=== PATIENT | female | born 1970 | race Caucasian/White ===

== ENCOUNTER 2018-11-21 00:51 | Emergency (ER) | payer BC, OTHER ==
--- NOTE | 2018-11-21 00:55 | PDOC ---
History of Present Illness - General Chief Complaint: Palpitations Stated Complaint: HEARTBEAT OVER 90 - History of Present Illness Initial Comments: This 48-year-old woman with a history of thrombocytosis but no other significant medical processes presents with episode of rapid and strong heartbeat when awakening from a nap just prior to presentation. Patient states that her "fit bit"watch showed maximum heart rate of 103/minute. Patient states that her resting heart rate is usually "20-30" beats per minute lower. She denies pain/shortness of breath/fever/vomiting or diarrhea. She had upper respiratory infection last week after returning from [place] but has now recovered from this. She denies lower extremity pain or swelling. No history of thyroid issues. Patient's thrombocytosis was diagnosed approximately 10 years ago and platelet counts have been stable at approximately 1.3M. White blood cell count is usually elevated also when she has her routine follow-up lab evaluations. She takes ASA 81 mg daily and is followed by Dr. Blank. Patient was taken off of her long-term oral contraceptives 3 months ago and has not had menstrual cycle since then. Past History - Past Medical History Allergies/Adverse Reactions: Allergies Allergy/AdvReac Type Severity Reaction Status Date / Time No Known Drug Allergies Allergy Verified 12/20/15 12:40 seasonal Allergy Uncoded 12/20/15 12:40 Home Medications: Ambulatory Orders Ascorbic Acid [Vitamin C -] 500 mg PO DAILY 12/20/15 Aspirin [Aspirin EC] 81 mg PO DAILY 12/20/15 Calcium Carbonate [Calcium] 500 mg PO DAILY 12/20/15 Cholecalciferol (Vitamin D3) [Vitamin D] 1,000 unit PO DAILY 12/20/15 Fluticasone Prop 0.05% Nasal [Flonase -] 1 - 2 spray NS DAILY 12/20/15 Norgestimate-Ethinyl Estradiol [Ortho Tri-Cyclen] 1 each PO DAILY 12/20/15 Anemia: No (hx of thrombocytosis) Asthma: No Cancer: No Cardiac Disorders: No CVA: No COPD: No CHF: No Dementia: No Diabetes: No GI Disorders: No Disorders: No HTN: No Hypercholesterolemia: No Liver Disease: No Seizures: No Thyroid Disease: No - Suicide/Smoking/Psychosocial Hx Smoking History: Never smoked Have you smoked in the past 12 months: No Hx Alcohol Use: No Drug/Substance Use Hx: No Substance Use Type: None Hx Substance Use Treatment: No Cardiac Specific PMH - Complaint Specific PMHX Pacemaker: No Review of Systems - Review of Systems Able to Perform ROS?: Yes Comments:: 12 point review of systems is negative except for what is noted in the history of present illness *Physical Exam - Vital Signs Last Vital Signs Temp Pulse Resp BP Pulse Ox 97.7 F 86 16 148/96 96 11/21/18 00:52 11/21/18 00:52 11/21/18 00:52 11/21/18 00:52 11/21/18 00:52 - Physical Exam Comments: GENERAL: Adult female, alert and oriented 3, in no acute distress; heart rate 86/minute T97.7 HEAD: Normal with no signs of trauma. EYES: PERRLA, EOMI, sclera anicteric, conjunctiva clear. ENT: Ears normal, nares patent, oropharynx clear without exudates. Dry mucous membranes. NECK: Normal range of motion, supple without lymphadenopathy, JVD, or masses. LUNGS: Breath sounds equal, clear to auscultation bilaterally. No wheezes, and no crackles. HEART:Regular rate and rhythm, normal S1 and S2 without murmur, rub or gallop. ABDOMEN:.normal bowel sounds No guarding,tenderness or rebound.No masses No distention. EXTREMITIES: Normal range of motion, no edema. No clubbing or cyanosis. No erythema, or tenderness. NEUROLOGICAL: Cranial nerves II through XII grossly intact. Normal speech. No focal neurological deficits. MUSCULOSKELETAL: Back non-tender to palpation, no CVA tenderness SKIN: Warm, Dry, normal turgor, no rashes or lesions noted. 12-lead electrocardiogram shows normal sinus rhythm at 77 beats per minute. [place], intervals and wave forms are all normal. No evidence of acute ST or T- wave abnormalities. No evidence of cardiac arrhythmia Moderate Sedation - Procedure Monitoring Vital Signs: Procedure Monitoring Vital Signs Temperature 97.7 F 11/21/18 00:52 Pulse Rate 86 11/21/18 00:52 Respiratory Rate 16 11/21/18 00:52 Blood Pressure 148/96 11/21/18 00:52 O2 Sat by Pulse Oximetry (%) 96 11/21/18 00:52 ED Treatment Course - LABORATORY CBC & Chemistry Diagram: 11/21/18 01:50 11/21/18 01:50 - ADDITIONAL ORDERS Additional order review: Laboratory Results 11/21/18 11/21/18 01:50 01:50 Sodium 141 Potassium 5.0 Chloride 108 H Carbon Dioxide 29 Anion Gap 5 L BUN 19 H Creatinine 0.8 Creat Clearance w eGFR > 60 Random Glucose 88 Calcium 8.4 L Total Bilirubin 0.4 AST 16 ALT 31 Alkaline Phosphatase 95 Total Protein 6.4 Albumin 3.8 TSH 2.74 Urine Color Ltyellow Urine Appearance Clear Urine pH 7.0 Ur Specific Shelley 1.012 Urine Protein Negative Urine Glucose (UA) Negative Urine Ketones Negative Urine Blood Negative Urine Nitrite Negative Urine Bilirubin Negative Urine Urobilinogen Negative Ur Leukocyte Esterase Negative Urine HCG, Qual Negative 11/21/18 01:50 RBC 4.62 MCV 94.9 MCHC 34.5 RDW 15.0 MPV 6.7 L Neutrophils % 82.4 Lymphocytes % 11.6 Monocytes % 2.4 L Eosinophils % 3.1 Basophils % 0.5 Medical Decision Making - Medical Decision Making CBC/chemistry profile/TSH/UA/PGU sent. Patient's episode of palpitations may be related to anemia/dehydration/occult infection/, among other abnormalities. Patient continued to be comfortable without any further episodes of fast or more forceful heartbeats. Laboratory evaluation reveals elevation of her platelet count (1.3 million) and WBCs (19.9 thousand) as expected from previous evaluations. Remainder of the CBC was essentially normal. Chemistry notable for elevation of BUN in relation to creatinine (19/0.8), somewhat suggestive of prerenal azotemia. Calcium level was slightly lower than normal at 8.4. Otherwise, chemistry profile is essentially normal. TSH is normal at 2.74. Urinalysis dipstick is entirely negative and PGU is also negative. Etiology of patient's episode of mild palpitations is unclear but no significant abnormalities found on her laboratory evaluation. Likewise, the patient's EKG revealed no significant conduction abnormality or evidence of acute ischemia/infarct. The patient will continue to drink plenty of fluids and return if she has prolonged rapid or irregular pulse. She should follow-up with her PMD (Dr. Fajardo) as well as Dr. Blank and her front services agent *DC/Admit/Observation/Transfer Diagnosis at time of Disposition: Palpitations - Discharge Dispostion Disposition: HOME Condition at time of disposition: Stable - Referrals Referrals: Anabela Fajardo MD [Primary Care Provider] - 1 week - Patient Instructions Printed Discharge Instructions: DI for Palpitations Additional Instructions: Continue to drink plenty of fluids Return to ER if you have prolonged palpitations or develop chest pain/shortness of breath Follow-up with Dr. Fajardo within the next week Follow-up with front services agent and with Dr. Blank as scheduled - Post Discharge Activity
[2018-11-21 00:57] VITALS: BP 148/96; PULSE 86; TEMP 97.7; BMI 26.6
[2018-11-21 02:24] LABS: URINE APPEARANCE CLEAR; URINE BILIRUBIN NEGATIVE (<2.0 mg/dL); URINE COLOR LTYELLOW; URINE GLUCOSE (UA) NEGATIVE (NEGATIVE); URINE KETONE NEGATIVE (NEGATIVE); URINE LEUK ESTERASE NEGATIVE (NEGATIVE); URINE NITRITE NEGATIVE (NEGATIVE); URINE PROTEIN NEGATIVE (NEGATIVE); URINE UROBILINOGEN NEGATIVE mg/dL (0.2-1.0)
[2018-11-21 02:27] LABS: BASO % 0.5 % (0-2.0); EOS % 3.1 % (0-4.5); HEMATOCRIT 43.8 % (32.4-45.2); HEMOGLOBIN 15.1 GM/dL (10.7-15.3); LYMPH % 11.6 % (8-40); MCH 32.8 pg (25.7-33.7); MCHC 34.5 g/dl (32.0-36.0); MEAN CELL VOLUME 94.9 fl (80-96); MEAN PLT VOLUME 6.7 fl (7.5-11.1); MONO % 2.4 % (3.8-10.2); NEUT % 82.4 % (42.8-82.8); RBC 4.62 M/mm3 (3.60-5.2); WHITE BLOOD COUNT 19.9 K/mm3 (4.0-10.0)
[2018-11-21 02:29] LABS: HCG,QUALITATIVE URINE Negative
[2018-11-21 02:37] LABS: PLATELET COUNT 1305 K/MM3 (134-434)
[2018-11-21 03:00] LABS: ALBUMIN 3.8 g/dl (3.4-5.0); ALK PHOS 95 U/L (45-117); ANION GAP 5 MMOL/L (8-16); BILIRUBIN,TOTAL 0.4 mg/dL (0.2-1); BLOOD UREA NITROGEN 19 mg/dL (7-18); CALCIUM 8.4 mg/dL (8.5-10.1); CHLORIDE 108 mmol/L (98-107); CO2 29 mmol/L (21-32); CREATININE 0.8 mg/dL (0.55-1.3); GLUCOSE,RANDOM 88 mg/dL (74-106); SGOT/AST 16 U/L (15-37); SGPT/ALT 31 U/L (13-61); SODIUM 141 mmol/L (136-145); TOT PROT 6.4 g/dl (6.4-8.2)
--- NOTE | 2018-11-22 11:07 | EKG ---
Test Reason : Blood Pressure : / mmHG Vent. Rate : 077 BPM Atrial Rate : 077 BPM P-R Int : 184 ms QRS Dur : 096 ms QT Int : 398 ms P-R-T Axes : 055 006 051 degrees QTc Int : 450 ms NORMAL SINUS RHYTHM POSSIBLE INFERIOR INFARCT , AGE UNDETERMINED CANNOT RULE OUT ANTERIOR INFARCT , AGE UNDETERMINED ABNORMAL ECG NO PREVIOUS ECGS AVAILABLE Confirmed by SHOAIB CABAN MD ([id number]) on 11/22/2018 11:06:55 AM Referred By: DR SALINAS Confirmed By:SHOAIB CABAN MD
== END 2018-11-21 03:21 | disposition home or self-care (01) ==
LOC: FER 00:51
DX: R00.2 Palpitations (principal); D47.3 Essential (hemorrhagic) thrombocythemia
CPT/HCPCS: 36415; 80053; 81003; 84443; 84703; 85025; 93005; 99283-25

== ENCOUNTER 2019-06-14 13:00 | Emergency (ER) | payer BC, OTHER ==
[2019-06-14 13:05] VITALS: BMI 26.6
[2019-06-14] MEDS ORDERED: OXYMETAZOLINE 0.05% NASAL SOLUTION 15 ML BOTTLE NS ONE ×2 (13:10→13:15)
[2019-06-14 13:20] VITALS: BP 136/95; PULSE 74; TEMP 98
--- NOTE | 2019-06-14 13:55 | PDOC ---
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 No history of similar has tried direct pressure with limited success tolerating secretions no difficulty breathing no pain no severe distress Past History - Past Medical History Allergies/Adverse Reactions: Allergies Allergy/AdvReac Type Severity Reaction Status Date / Time No Known Drug Allergies Allergy Verified 06/14/19 13:01 seasonal Allergy Uncoded 06/14/19 13:01 Home Medications: Ambulatory Orders Aspirin [Aspirin EC] 81 mg PO DAILY 12/20/15 Fluticasone Prop 0.05% Nasal [Flonase -] 1 - 2 spray NS DAILY 06/14/19 Anemia: No (hx of thrombocytosis) Asthma: No Cancer: No Cardiac Disorders: No CVA: No COPD: No CHF: No Dementia: No Diabetes: No GI Disorders: No Disorders: No HTN: No Hypercholesterolemia: No Liver Disease: No Seizures: No Thyroid Disease: No - Suicide/Smoking/Psychosocial Hx Smoking History: Never smoked Have you smoked in the past 12 months: No Hx Alcohol Use: Yes (OCASIONAL) Drug/Substance Use Hx: No Substance Use Type: None Hx Substance Use Treatment: No Review of Systems - Review of Systems Comments:: 06/14/19 13:50 ROS: A complete review of 10 out of 10 review of systems is taken and is negative apart from what is previously mentioned below and in the HPI. Is the patient limited Swazi proficient: Yes *Physical Exam - Vital Signs Last Vital Signs Temp Pulse Resp BP Pulse Ox 98.0 F 74 16 136/95 98 06/14/19 13:00 06/14/19 13:00 06/14/19 13:00 06/14/19 13:00 06/14/19 13:00 - Physical Exam Comments: 06/14/19 13:51 Vitals: Triage Vital signs reviewed General Appearance: no acute distress, well nourished well developed, Head: Atraumatic, Nose: Nares patent bilaterally;no nasal congestion bleeding from Middle / posterior lateral Oakes right nostril; no septal hematoma Throat: Posterior oropharynx without erythema, mucous membranes moist, Neck: Supple;No Nucal rigidity Psych: normal mood, normal affect ED Treatment Course - Medications Given in the ED: ED Medications Discontinued Medications Generic Name Dose Route Start Last Admin Trade Name Jim PRN Reason Stop Dose Admin Oxymetazoline HCl 1 spray 06/14/19 13:10 06/14/19 13:18 Afrin - NS 06/14/19 13:11 1 spray ONCE ONE Administration Medical Decision Making - Medical Decision Making 06/14/19 13:52 48 years old with nosebleed. Direct pressure applied for 15 minutes after Afrin nasal spray with no success. Not amenable to cauterization at this time Nasal packing applied with good hemostasis no posterior bleed We'll discharge with 24-hour ENT follow-up no indication for antibiotics at this time. Findings, the need for follow-up and strict return instructions discussed with patient. *DC/Admit/Observation/Transfer Diagnosis at time of Disposition: Epistaxis - Discharge Dispostion Disposition: HOME Condition at time of disposition: Fair Decision to Admit order: No - Referrals Referrals: Anabela Fajardo MD [Primary Care Provider] - Lauri Marie MD [Staff Physician] - - Patient Instructions Printed Discharge Instructions: Nosebleed Additional Instructions: Leave packing in place. I'll up with your ENT or Dr. Tierney tomorrow. Return to ED for any severe worsening symptoms or for any concerns. - Post Discharge Activity
== END 2019-06-14 14:33 | disposition home or self-care (01) ==
LOC: FER 13:00
PROC: 2Y41X5Z Packing of Nasal Region using Packing Material (ICD-10-PCS; principal; 2019-06-14)
DX: R04.0 Epistaxis (principal); D47.3 Essential (hemorrhagic) thrombocythemia
CPT/HCPCS: 99281-25

== ENCOUNTER 2019-07-02 12:42 | Inpatient (IN) | payer BC, OTHER ==
[2019-07-02] MEDS ORDERED: SODIUM CHLORIDE 0.9% 500 ML INFUS.BAG IV ONE (13:41)
--- NOTE | 2019-07-02 13:42 | PDOC ---
History of Present Illness - General Chief Complaint: Diarrhea Stated Complaint: ABD. PAIN Time Seen by Provider: 07/02/19 13:25 Past History - Past Medical History Allergies/Adverse Reactions: Allergies Allergy/AdvReac Type Severity Reaction Status Date / Time No Known Drug Allergies Allergy Verified 07/02/19 03:23 seasonal Allergy Uncoded 07/02/19 03:23 Home Medications: Ambulatory Orders Ascorbate Calcium [Vitamin C] 500 mg PO DAILY 07/02/19 Aspirin 81 mg PO DAILY 07/02/19 Calcium Carbonate [Calcium] 500 mg PO DAILY 07/02/19 Ciprofloxacin [Cipro -] 500 mg PO Q12H #10 tablet 07/02/19 Fluticasone Prop 0.05% Nasal [Flonase -] 1 - 2 spray NS DAILY 07/02/19 Loratadine [Claritin] 10 mg PO DAILY 07/02/19 metroNIDAZOLE [Flagyl -] 500 mg PO TID #15 tablet 07/02/19 Anemia: No (hx of thrombocytosis) Asthma: No Cancer: No Cardiac Disorders: No CVA: No COPD: No CHF: No Dementia: No Diabetes: No GI Disorders: No Disorders: No HTN: No Hypercholesterolemia: No Liver Disease: No Seizures: No Thyroid Disease: No - Immunization History Immunization Up to Date: No - Psycho Social/Smoking Cessation Hx Smoking History: Never smoked Have you smoked in the past 12 months: No Information on smoking cessation initiated: No Hx Alcohol Use: No Drug/Substance Use Hx: No Substance Use Type: None Hx Substance Use Treatment: No *Physical Exam - Vital Signs Last Vital Signs Temp Pulse Resp BP Pulse Ox 98.6 F 83 18 134/88 99 07/02/19 13:03 07/02/19 13:03 07/02/19 13:03 07/02/19 13:03 07/02/19 13:03 ED Treatment Course - LABORATORY CBC & Chemistry Diagram: 07/02/19 14:07 Medical Decision Making - Medical Decision Making 07/02/19 13:42 HPI: 48yo F hx essential thrombocytosis on aspirin, seasonal allergies, hemorrhoids, and anal fissures presents from home c/o persistent BRBPR since d/c from here this AM for same complaint. Pt states her abdominal pain has improved, but her rectal bleeding has continued and her d/c instructions say to return for persistent bleeding. Endorses PO intolerance, nausea, 1x NBNB emesis at 1999 last PM, and generalized weakness/fatigue. Endorses continued intermittent b/l abdominal cramping pain since yesterday 1600 sudden onset, nonradiating, worse with defecation, associated with bright red bloody watery diarrhea. Pt states she has not eaten since d/c so she no longer has BMs or diarrhea but still has drops of bright red blood in toilet bowl and on toilet paper, only a few teaspoons total today. No hx of similar sx. Endorses Fhx colon CA in father and paternal grandfather so concerned about CA. Called GI but was unable to get CLP until Thursday and would prefer earlier if possible. Denies fever, chills, headache, dizziness, numbness/tingling, focal weakness, vision changes, shortness of breath, cough, chest pain, palpitations, leg swelling, constipation , vaginal discharge, vaginal bleeding, vaginal irritation, anus pain, dysuria, hematuria, confusion. GI - Argueta CLP done at 40yo and 45yo, next CLP scheduled next year. ROS: Constitutional: Positive for fatigue. Negative for chills, fever, diaphoresis. HENT: Negative for sore throat, rhinorrhea, congestion. Eyes: Negative for visual disturbance. Respiratory: Negative for shortness of breath, cough, and wheezing. Cardiovascular: Negative for chest pain, palpitations, and leg swelling. Gastrointestinal: Positive for abdominal pain, blood in stool, diarrhea, nausea , vomiting, PO intolerance. Negative for constipation. Genitourinary: Negative for dysuria, flank pain, and hematuria. Musculoskeletal: Negative for myalgias, back pain, and neck pain. Skin: Negative for rash. Neurological: Negative for light-headedness, dizziness, vertigo, syncope, weakness, numbness and headaches. Heme/lymph: Positive for essential thrombocytosis. Psychiatric/Behavioral: Negative for behavioral problems and confusion. PE: Gen: Alert, NAD, comfortable-appearing. HEENT: PERRL, EOMI, MMM, NCAT. No conjunctival pallor. Sclera are non-icteric. Oropharynx is clear. CV: Regular rate and rhythm. No murmurs, rubs, or gallops. PULM: No resp distress. CTAB, no wheezes, rales, or rhonchi. ABD: +mild b/l suprapubic TTP, soft, ND, no rebound tenderness or guarding, no CVA tenderness. BACK: No TTP of c/t/l-spine. No step-offs or deformities. MSK: No bony deformities. 2+ pulses in all extremities. NEURO: AAOx3. PERRL. No gross CN deficits. Strength and sensation grossly intact throughout. EXTREMITIES: No cyanosis. No clubbing. No edema. No calf tenderness. PSYCH: Normal mood and thought pattern. SKIN: Warm and dry. Normal capillary refill. No rashes. No jaundice. MDM: 48yo F hx essential thrombocytosis, seasonal allergies, hemorrhoids, and anal fissures presents from home with persistent BRBPR and lower abdominal cramping pain since d/c from here this AM for same complaint with dx colitis, as well as worsening fatigue, PO intolerance, and nausea. Pt was discharged this AM with GI f/u and rx for cipro/flagyl. Pt has not picked up abx yet or taken first dose yet. Labs reviewed from this AM: CBC, coags, CMP, lipase, UA. CBC consistent with known essential thrombocytosis, WBC 26.6, Plt 1153 (pt reports baseline, on aspirin). Stool culture and ova parasite done this AM. No FOBT done. CT reviewed: e/o colitis and sigmoid diverticulosis Hemodynamically stable, afebrile, +mild b/l suprapubic TTP on exam. Only a few teaspoons of blood, but will obtain CBC to r/o anemia 2/2 hemorrhage. FOBT to evaluate for blood. Abx to tx known colitis. Presentation consistent with earlier presentation today, non-acute abdomen - labs and CT done , no indication for additional imaging or repeat labs other than CBC. -CBC,T&S,FOBT -1L NS -Cipro, Flagyl -Dispo: adm for weakness and inability to take abx pending w/u 07/02/19 14:51 FOBT done. Minimal lopez blood seen on digital exam. Skin tags seen but no anal fissures or hemorrhoids seen or felt. Pt states no stool sample was obtained yesterday - will re-order stool culture and ova parasite. Also discovered recent use Keflex - added C diff. 07/02/19 14:57 Labs reviewed. No significant changes on CBC. FOBT positive. MBMD to hospitalist. 07/02/19 16:31 EKG reviewed. NSR, 76bpm, QTc 470ms, no TWIs, no ST elevations or depressions. No prior EKG for comparison. Admission accepted under Dr Beltrán. Discharge - Discharge Information Problems reviewed: Yes Clinical Impression/Diagnosis: Colitis Condition: Stable - Admission Yes - Follow up/Referral Referrals: Anabela Fajardo MD [Primary Care Provider] - - Patient Discharge Instructions - Post Discharge Activity
[2019-07-02] MEDS ORDERED: CIPROFLOXACIN 400 MG/D5W 400 MG/200 ML IVPB IVPB ONE (13:59)
[2019-07-02] MEDS ORDERED: ONDANSETRON 4 MG/2 ML VIAL IVPUSH ONE (14:02)
[2019-07-02 14:34] LABS: BASO % 0.4 % (0-2.0); EOS % 1.8 % (0-4.5); HEMATOCRIT 48.7 % (32.4-45.2); HEMOGLOBIN 16.4 GM/dL (10.7-15.3); LYMPH % 5.6 % (8-40); MCH 30.5 pg (25.7-33.7); MCHC 33.6 g/dl (32.0-36.0); MEAN PLT VOLUME 6.6 fl (7.5-11.1); MONO % 1.6 % (3.8-10.2); NEUT % 90.6 % (42.8-82.8); RBC 5.36 M/mm3 (3.60-5.2); RDW 15.3 % (11.6-15.6); WHITE BLOOD COUNT 24.3 K/mm3 (4.0-10.0)
[2019-07-02 14:35] LABS: PLATELET COUNT 1112 K/MM3 (134-434)
--- NOTE | 2019-07-02 15:25 | PDOC ---
Documentation entered by Misty Laguerre SCRIBE, acting as scribe for Kyara Jacinto MD. Kyara Jacinto MD: This documentation has been prepared by the Carlotta villagomez Adrianna, SCRIBE, under my direction and personally reviewed by me in its entirety. I confirm that the documentation accurately reflects all work, treatment, procedures, and medical decision making performed by me. Attending Attestation - Resident Resident Name: Irasema Moss - ED Attending Attestation I have performed the following: I have examined & evaluated the patient, The case was reviewed & discussed with the resident, I agree w/resident's findings & plan, Exceptions are as noted - HPI HPI: The patient is a 48 year old female, with a significant PMH of essential thrombocytosis, who presents for evaluation of diarrhea, BRBPR, and lower abdominal cramping for one day. Patient was seen earlier this morning, and her CTAP demonstrated colitis. Patient returns as the bleeding has not stopped since her discharge and she wants to be admitted. Allergies: NKA, NKDA Surgical History: None reported Social History: Denies EtOH, tobacco, or illicit drug use 07/02/19 15:14 - Physicial Exam PE: 07/02/19 15:22 Is really tell when they are coming awake alert no acute distress lungs are clear bilaterally heart is regular with no murmurs rubs or gallops abdomen is soft there is mild left lower quadrant tenderness no rebound no guarding no CVA tenderness extremities are warm and well-perfused no noted edema - Medical Decision Making 07/02/19 15:23 48-year-old female with a history of essential thrombocytosis recently on Keflex after a nosebleed which was packed 1 week ago here today complaining of persistent loose watery stools crampy abdominal pain. Patient was seen on the overnight shift at that time was having several bowel movements in our was evaluated with CBC CMP and a CT abdomen pelvis which showed diffuse colitis. She was discharged home with a prescription for Cipro and Flagyl. While at home however the patient started having blood without stool from her rectum still having crampy pain overall stools have become much less she did have one episode of nausea and vomiting which is since resolved however when she tried to eat crackers she had to go the bathroom again denies any fevers or chills no recent travel no history of previous GI bleeds no family history of ulcerative colitis or Crohn's Differential includes colitis secondary to C. difficile versus inflammatory or infectious. Patient is been able to tolerate very little p.o. at home we will continue IV hydration IV antibiotics Norris Shaver will call her fiction writer Dr. Argueta Heart Score/ECG Review #1 General ECG Interpretation: Sinus Rhythm, Normal Rate (76), Normal Intervals, No acute ischemic changes
--- NOTE | 2019-07-02 16:11 | PN ---
Teaching Attending Note Name of Resident: Dary Salazar ATTENDING PHYSICIAN STATEMENT I saw and evaluated the patient. I reviewed the resident's note and discussed the case with the resident. I agree with the resident's findings and plan as documented with exceptions below. SUBJECTIVE: 48 yof with PMHx of Myeloproliferative disorder, essential thrombocytosis ( Baseline WBC 15-20, Platelets around 1 million) on ASA, strong family Hx of colon ca, last colonoscopy 3.5 years ago (with Dr. Argueta), comes with sudden onset of lower abdominal crampy pain, nausea, multilpe episodes of watery stool mixed with BRBPR. She was seen in the ED last night, sent home on cipro/flagyl, came back as had few more episodes of BRBPR (drops of blood mixed with few clots in the toilet), came back to ED. Subjective fevers/chills earlier. s/p keflex for nasal packing/bleed few weeks ago. No recent travel, URI like illness. Her mother was recently sick with UTI, hospitalized, and she was in hospital daily last week. No reports of diveritulosis/polyp/haemorrhoids on prior colonoscopy per patient. OBJECTIVE: Vital Signs Period Temp Pulse Resp BP Sys/Carty Pulse Ox Last 24 Hr 98.6 F 83 18 134/88 99 Intake & Output 06/29/19 06/30/19 07/01/19 07/02/19 23:59 23:59 23:59 23:59 Weight 172 lb GENERAL: Awake, alert, and fully oriented, in no acute distress. HEAD: Normal with no signs of trauma. EYES: Pupils equal, round and reactive to light, extraocular movements intact, sclera anicteric, conjunctiva clear. No lid lag. EARS, NOSE, THROAT: Ears normal, nares patent, oropharynx clear without exudates. Moist mucous membranes. NECK: Normal range of motion, supple, no JVD LUNGS: Breath sounds equal, clear to auscultation bilaterally. No wheezes, and no crackles. No accessory muscle use. HEART: Regular rate and rhythm, normal S1 and S2 ABDOMEN: Soft, mild suprapubic/Medial LLQ tenderness, ND, no voluntary or involuntary guarding or rigidity, pos bowel sounds RECTAL: No fissure or haemorrhoids, no blood on exam currently, good rectal tone MUSCULOSKELETAL: Normal range of motion at all joints. No bony deformities or tenderness. No CVA tenderness. UPPER EXTREMITIES: 2+ pulses, warm, well-perfused. No cyanosis. No clubbing. No peripheral edema. LOWER EXTREMITIES: 2+ pulses, warm, well-perfused. No calf tenderness. No peripheral edema. NEUROLOGICAL: AAOx3, Cranial nerves II-XII intact. Normal speech. Normal gait. PSYCHIATRIC: Cooperative. Good eye contact. Appropriate mood and affect. SKIN: Warm, dry, normal turgor, no rashes or lesions noted, normal capillary refill. Home Medications Medication Instructions Recorded Ascorbate Calcium [Vitamin C] 500 mg PO DAILY 07/02/19 Aspirin 81 mg PO DAILY 07/02/19 Calcium Carbonate [Calcium] 500 mg PO DAILY 07/02/19 Ciprofloxacin [Cipro -] 500 mg PO Q12H #10 tablet 07/02/19 Fluticasone Prop 0.05% Nasal 1 - 2 spray NS DAILY 07/02/19 [Flonase -] Loratadine [Claritin] 10 mg PO DAILY 07/02/19 metroNIDAZOLE [Flagyl -] 500 mg PO TID #15 tablet 07/02/19 Laboratory Results - last 24 hr 07/02/19 07/02/19 07/02/19 14:07 14:07 14:44 WBC 24.3 H RBC 5.36 H Hgb 16.4 H Hct 48.7 H MCV 91.0 MCH 30.5 MCHC 33.6 RDW 15.3 Plt Count 1112 H MPV 6.6 L Absolute Neuts (auto) 22.0 H Neutrophils % 90.6 H Lymphocytes % 5.6 L Monocytes % 1.6 L Eosinophils % 1.8 Basophils % 0.4 Nucleated RBC % 0 Stool Occult Blood Positive Blood Type O POSITIVE Antibody Screen Negative CT A/P results reviewed ASSESSMENT AND PLAN: 48 yof with PMHx of Myeloproliferative disorder, essential thrombocytosis ( Baseline WBC 15-20, Platelets around 1 million) on ASA, strong family Hx of colon ca, last colonoscopy 3.5 years ago (with Dr. Argueta), admitted with acute colitis/proctitis and hematochezia. -Acute descending/sigmoid colitis/Protitis -Hematochezia -Myeloproliferative disorder (baseline WBC 15--20) -Essential thrombocytosis Plan: Clear liquid diet. IVF, Levaquin/flagyl. GI consult Stool studies including C defficile. Supportive treatment with zofran/tylenol. Monitor h/h. ASA on hold today, resume in 24 hours based on clinical course. DVTPPX SCDs for now Dispo pending clinical improvement. Admit to med surg inpatient Discussed with patient in detail, all questions answered. Care co-ordinated with ED. total admit time 55 min.
[2019-07-02] MEDS ORDERED: ACETAMINOPHEN 325 MG TABLET (FP) PO PRN (16:17)
[2019-07-02] MEDS ORDERED: PROCHLORPERAZINE INJECTION 10 MG/2 ML VIAL IVPB PRN (16:47)
--- NOTE | 2019-07-02 16:51 | HP ---
CHIEF COMPLAINT: LGIB PCP: GI: Dr. Argueta HISTORY OF PRESENT ILLNESS: 48 y/o F with PMHx Essential Thrombocytosis (follows with Dr. Blank, Baseline PLT [id number], Baseline WBC 15-20k, No hx of bone bx), Hemorrhoids, Anal fissures, multiple family members with Colon Ca (Last Colonoscopy at age 41 and 45, Normal as per patient) presents with BRBPR. Patient recently visited [facility] this AM for BRBPR with Diarrhea in the setting of cramping abdominal pain; During this visit she had a CT A/P done which revealed Colitis for which she was given IV Analgesia and IVF. Her sx's improved and she was discharged on ABx (Cipro/Flagyl) and advised for outpatient GI Follow up. Since PA, she has had multiple BMs with a few drops of bright red blood in the toilet bowl and on toilet paper with wiping prompting her to return to [facility]. She says she went to bed in her usual state of health however woke with a diffuse, cramping abdominal pain that waxes and wanes, at worts was 6/10. This pain was accompanied by diarrhe that was initially nonbloody and without floaters or odd smells but eventually became bloody. This is the first time she has experienced BRBPR. Denies any NSAID use, recent EtOH use, Sick contacts (no students with diarrhea) , travel, or changes in Diet. Normally patient has 1 BM q36-48 hours. Endorses subjective fevers, nausea, NBNB vomiting x1. Denies chills, chest pain, SOB, headache, dizziness. Additionally she endorses recently visiting [facility] for a nose bleed which requiring packing and a course of Keflex. She also endorses increased stressed from her mothers health; she has been visiting her mother in [facility]. ER course was notable for: (1) (2) (3) Recent Travel: Denies PAST MEDICAL HISTORY: As above PAST SURGICAL HISTORY: 2 colonoscopies Social History: Smoking: Denies Alcohol: Social Drugs: Denies Occupation: 6th grade teacher Ambulation: without assistance Residence: At home with Allergies No Known Drug Allergies Allergy (Verified 07/02/19 03:23) seasonal Allergy (Uncoded 07/02/19 03:23) HOME MEDICATIONS: Home Medications Medication Instructions Recorded Ascorbate Calcium [Vitamin C] 500 mg PO DAILY 07/02/19 Aspirin 81 mg PO DAILY 07/02/19 Calcium Carbonate [Calcium] 500 mg PO DAILY 07/02/19 Ciprofloxacin [Cipro -] 500 mg PO Q12H #10 tablet 07/02/19 Fluticasone Prop 0.05% Nasal 1 - 2 spray NS DAILY 07/02/19 [Flonase -] Loratadine [Claritin] 10 mg PO DAILY 07/02/19 metroNIDAZOLE [Flagyl -] 500 mg PO TID #15 tablet 07/02/19 REVIEW OF SYSTEMS As per HPI PHYSICAL EXAMINATION Vital Signs - 24 hr 07/02/19 13:03 Temperature 98.6 F Pulse Rate 83 Respiratory 18 Rate Blood Pressure 134/88 O2 Sat by Pulse 99 Oximetry (%) GENERAL: A&Ox3, NAD HEAD: NCAT EYES: PERRL, EOMI EARS, NOSE, THROAT: Moist mucous membranes. NECK: Supple LUNGS: Clear to auscultation bilaterally. No wheezes, no crackles. HEART: Regular rate and rhythm, normal S1 and S2 without murmur ABDOMEN: Soft, Mild tenderness to palpation throughout, not distended, + bowel sounds, no guarding, no rebound EXTREMITIES: No peripheral edema. NEUROLOGICAL: Cranial nerves II-XII intact. Normal speech. SKIN: Warm, dry RECTAL: No stool in vault, Good sphincter tone, No external hemmorrhoids visualized, No internal hemorrhoids felt, No active bleeding noted, No blood on tip of glove Laboratory Results - last 24 hr 07/02/19 07/02/19 07/02/19 14:07 14:07 14:44 WBC 24.3 H RBC 5.36 H Hgb 16.4 H Hct 48.7 H MCV 91.0 MCH 30.5 MCHC 33.6 RDW 15.3 Plt Count 1112 H MPV 6.6 L Absolute Neuts (auto) 22.0 H Neutrophils % 90.6 H Lymphocytes % 5.6 L Monocytes % 1.6 L Eosinophils % 1.8 Basophils % 0.4 Nucleated RBC % 0 Stool Occult Blood Positive Blood Type O POSITIVE Antibody Screen Negative Active Medications Acetaminophen (Tylenol -) 650 mg PO Q4H PRN PRN Reason: FEVER Lactated Ringer's (Lactated Ringers Solution) 1,000 mls @ 100 mls/hr IV ASDIR MARCELINO ASSESSMENT/PLAN: 48 y/o F with PMHx Essential Thrombocytosis (follows with Dr. Blank, Baseline PLT [id number], Baseline WBC 15-20k, No hx of bone bx), Hemorrhoids, Anal fissures, multiple family members with Colon Ca (Last Colonoscopy at age 41 and 45, Normal as per patient) presents with BRBPR. #BRBPR -Possibly Diverticular Bleed however Colon Ca is of concern given strong FHx, Still consider through less likely internal hemorrhoids and angiodysplasia -FOBT +, H&H stable, VSS -CT A/P Prelim read for Colitis -Maintain 2 large bore IVs (>18 Gauge) -VS Q4H, Notify MD if HR > 100 or SBP < 100 -Hydration: LR @ 100 -ABx: IV Levofloxacin, Metronidazole -Antiemesis: IV Compazine (QTc 470) -Less likely UGIB, Will hold off PPI -Trial Clear liquid diet however if emesis persists will need to be NPO -Check Stool Studies; ED Sent C. Diff -Supplemental O2 to maintain SpO2 > 90% -Avoid NSAIDs/ASA; Will consider restarting home dose ASA tomorrow -Check H&H again @ 20:00 for acute drop, Normal transfusion thresholds -Serial Abdominal Exams -GI Consulted #Essential Thrombocytosis -Continue to monitor PLT, WBC -Hold ASA; Will consider restarting home dose ASA tomorrow #PRolonged QTc -Avoid QT proloning Agents -Serial EKGs #FEN -LR @ 100 -Replete Lytes PRN -Clear liquid diet #PPx -DVT: SCDs Dispo: Admit to med-surg Visit type - Emergency Visit Emergency Visit: Yes Care time: The patient presented to the Emergency Department on the above date and was hospitalized for further evaluation of their emergent condition. - New Patient This patient is new to me today: Yes Date on this admission: 07/02/19 - Critical Care Critical Care patient: No ATTENDING PHYSICIAN STATEMENT I saw and evaluated the patient. I reviewed the resident's note and discussed the case with the resident. I agree with the resident's findings and plan as documented. SUBJECTIVE: OBJECTIVE: ASSESSMENT AND PLAN:
[2019-07-02] MEDS: LACTATED RINGERS SOLUTION 1,000 ML IV SCH (18:17)
[2019-07-02 20:29] VITALS: BMI 27.0
[2019-07-03 07:59] LABS: BASO % 0.8 % (0-2.0); EOS % 1.5 % (0-4.5); HEMATOCRIT 43.2 % (32.4-45.2); HEMOGLOBIN 14.7 GM/dL (10.7-15.3); LYMPH % 5.7 % (8-40); MCH 30.7 pg (25.7-33.7); MCHC 34.1 g/dl (32.0-36.0); MEAN CELL VOLUME 90.1 fl (80-96); MEAN PLT VOLUME 6.2 fl (7.5-11.1); MONO % 1.8 % (3.8-10.2); NEUT % 90.2 % (42.8-82.8); PLATELET COUNT 905 K/MM3 (134-434); RDW 15.2 % (11.6-15.6); WHITE BLOOD COUNT 17.2 K/mm3 (4.0-10.0)
[2019-07-03 08:06] LABS: ALBUMIN 3.7 g/dl (3.4-5.0); BILIRUBIN,TOTAL 0.9 mg/dL (0.2-1); BLOOD UREA NITROGEN 5.9 mg/dL (7-18); CALCIUM 8.8 mg/dL (8.5-10.1); CREATININE 0.8 mg/dL (0.55-1.3); MAGNESIUM 1.9 mg/dL (1.8-2.4); PHOSPHOROUS 3.2 mg/dL (2.5-4.9); POTASSIUM 4.1 mmol/L (3.5-5.1)
[2019-07-03 08:13] LABS: INR 1.28 (0.83-1.09); PROTHROMBIN TIME (PATIENT) 15.2 SEC (9.7-13.0)
[2019-07-03 08:15] LABS: ACTIVATED PTT 38.2 SECONDS (25.2-36.5)
[2019-07-03 10:54] LABS: ANISOCYTOSIS 2+; MACROCYTOSIS 0; PLATELET ESTIMATE INCREASED; TEAR DROP CELLS 1+
--- NOTE | 2019-07-03 11:23 | CON.GI ---
Consult Consult Specialty:: GI Referred by:: Hospitalist Service Reason for Consultation:: Abdominal pain, diarrhea, rectal bleeding - History of Present Illness Chief Complaint: Abdominal pain, diarrhea, rectal bleeding History of Present Illness: 48F admitted through [facility] yesterday for for evaluation of left sided abdominal cramping, loose bowel movements followed by mixed blood and blood clots with her diarrhea. Was in [facility] up until thursday when her symptoms began. She felt nauseus once and retched when the cramping began to experience more consistent abdominal cramping and this was followed by loose bowel movements. Thursday night she noted blood mixed with her and had a total of three more episodes Thursday. She came to the ER, had a CT scan revealing a left sided colitis and was discharged on Abx. She returned due to continued pain and was admitted for further evaluation. She denied associated fevers/chills, sick contacts with similar complaints. She has been visiting her mother who was admitted at [facility] last week. She was on Keflex for 1 week following an ER visit for epistaxis that led to nasal packing. She has a history of Essential Thrombocytosis and has been on ASA 81mg once daily. There has been no diarrhea or rectal bleeding noted today. She has some left sided discomfort. Due to a family history of colon cancer, she is followed by Dr. Castillo Argueta. Her last colonoscopy with him was 3.5 years ago and she states that is was normal. Her initial colonoscopy was a normal study as well. Her baseline WBC is around 19K. She states that her platelet count has been around 1 million. - History Source History Provided By: Patient, Medical Record - Past Medical History ...LMP: 12/18/15 Heme/Onc: Yes: Other (Essential thrombocytosis) - Past Surgical History Additional Surgical History: Denies - Alcohol/Substance Use Hx Alcohol Use: No - Smoking History Smoking history: Never smoked Have you smoked in the past 12 months: No - Social History Usual Living Arrangement: With Spouse ADL: Independent Occupation: Teacher Place of : [employer] [facility] [employer] History of Recent Travel: No Home Medications - Allergies Allergies/Adverse Reactions: Allergies Allergy/AdvReac Type Severity Reaction Status Date / Time No Known Drug Allergies Allergy Verified 07/02/19 03:23 seasonal Allergy Uncoded 07/02/19 03:23 - Home Medications Home Medications: Ambulatory Orders Aspirin 81 mg PO DAILY 07/02/19 Family Medical History Other Family History: Mother: Alive: Alzheimer's Dementia, renal issue leading to renal transplant. Father: : 60's: Colon cancer. 1 brother: healthy. No children. Maternal Aunt: renal issue leading to x-plant. Maternal GF: Colon cancer. No family history of IBD Review of Systems - Review of Systems Constitutional: denies: Fever, Loss of Appetite, Night Sweats, Unintentional Wgt. Loss Cardiovascular: denies: Chest Pain Respiratory: denies: Cough, SOB Gastrointestinal: reports: Abdominal Pain, Diarrhea, Rectal Bleeding, Vomiting Blood. denies: Vomiting Physical Exam-GI Vital Signs: Vital Signs Temperature 97.7 F 07/03/19 05:15 Pulse Rate 78 07/03/19 09:00 Respiratory Rate 18 07/03/19 09:00 Blood Pressure 144/84 07/03/19 09:00 O2 Sat by Pulse Oximetry (%) 98 07/02/19 21:00 Constitutional: Yes: Calm Eyes: No: Sclera Icterus Cardiovascular: Yes: Regular Rate and Rhythm, Murmur (2/6 systolic murmur at the RSB) Respiratory: Yes: CTA Bilaterally Gastrointestinal Inspection: No: Distention, Scars ...Auscultate: Yes: Normoactive Bowel Sounds ...Palpate: Yes: Soft, Tenderness (Mild TTP LLQ). No: Guarding, Hepatomegaly, Splenomegaly, Tenderness, Rebound ...Percussion: No: Tympanitic Edema: No (No LE edema) Neurological: Yes: Alert Labs: CBC, BMP 07/03/19 07:01 07/03/19 07:01 INR, PTT INR 1.28 (0.83-1.09) H 07/03/19 07:01 Imaging - Results Cat Scan: Report Reviewed, Image Reviewed Problem List - Problems (1) Colitis Assessment/Plan: Left sided colitis with mild symptomatology. ? self limited acute colitis. Given left sided segmental nature of her colitis, passage of blood clots along with her loose bowel movements and her history of essential thrombocytosis, vascular etiology such as ischemic colitis would need to be considered. Improved clinically today. Advise: Advancing to full liquids. NPO after midnight tonight Flex sig tomorrow to better characterize the colitis described on CT scan. If consistent with ischemic colitis (although rectum usually spared) then she may need further discussion with her manufacture specialist regarding escalation of therapy for her essential thrombocytosis. Discussed plan with patient. She is amenable to this. If continued diarrhea, stool for C. Diff,Culture Problems reviewed: Yes Code(s): K52.9 - NONINFECTIVE GASTROENTERITIS AND COLITIS, UNSPECIFIED
--- NOTE | 2019-07-03 13:25 | PN ---
Physical Exam: SUBJECTIVE: Patient seen and examined, abdominal pain markedly improved, no further bleed. No nausea, vomiting or concerns. OBJECTIVE: Vital Signs Period Temp Pulse Resp BP Sys/Carty Pulse Ox Last 24 Hr 97.5 F-97.9 F 72-93 18-18 125-144/70-84 96-98 Intake & Output 06/30/19 07/01/19 07/02/19 07/03/19 23:59 23:59 23:59 23:59 Intake Total 450 320 Balance 450 320 Weight 172 lb 9.6 oz General: ambulating in the room, no acute distress Neck: soft, supple HEENT; PERRL, EOMI CVS:S1S2 regular Chest: CTAB, no rales or wheezing Abdomen:soft, minimal suprapubic medial LLQ tenderness, no voluntary or involuntary guarding or rigidity, pos bowel sounds Extremities: no edema Laboratory Results - last 24 hr 07/02/19 07/02/19 07/02/19 14:07 14:07 14:44 WBC 24.3 H RBC 5.36 H Hgb 16.4 H Hct 48.7 H MCV 91.0 MCH 30.5 MCHC 33.6 RDW 15.3 Plt Count 1112 H MPV 6.6 L Absolute Neuts (auto) 22.0 H Neutrophils % 90.6 H Neutrophils % (Manual) 90.4 H Band Neutrophils % 0.0 Lymphocytes % 5.6 L Lymphocytes % (Manual) 7.2 L D Monocytes % 1.6 L Monocytes % (Manual) 2 L Eosinophils % 1.8 Eosinophils % (Manual) 0.0 Basophils % 0.4 Basophils % (Manual) 0.0 Myelocytes % (Man) 0 Promyelocytes % (Man) 0 Blast Cells % (Manual) 0 Nucleated RBC % 0 Metamyelocytes 0 Hypochromia Platelet Estimate Platelet Comment Polychromasia Poikilocytosis Anisocytosis Microcytosis Macrocytosis Spherocytes Tear Drop Cells PT with INR INR PTT (Actin FS) Sodium Potassium Chloride Carbon Dioxide Anion Gap BUN Creatinine Est GFR (CKD-EPI)AfAm Est GFR (CKD-EPI)NonAf Random Glucose Calcium Phosphorus Magnesium Total Bilirubin AST ALT Alkaline Phosphatase Total Protein Albumin Stool Occult Blood Positive Blood Type O POSITIVE Antibody Screen Negative 07/03/19 07/03/19 07/03/19 07:01 07:01 07:01 WBC 17.2 H RBC 4.80 Hgb 14.7 Hct 43.2 MCV 90.1 MCH 30.7 MCHC 34.1 RDW 15.2 Plt Count 905 H MPV 6.2 L Absolute Neuts (auto) 15.5 H Neutrophils % 90.2 H Neutrophils % (Manual) 87.8 H Band Neutrophils % 1.0 Lymphocytes % 5.7 L Lymphocytes % (Manual) 4.1 L D Monocytes % 1.8 L Monocytes % (Manual) 1 L Eosinophils % 1.5 Eosinophils % (Manual) 4.1 D Basophils % 0.8 Basophils % (Manual) 0.0 Myelocytes % (Man) 0 Promyelocytes % (Man) 0 Blast Cells % (Manual) 0 Nucleated RBC % 0 Metamyelocytes 0 Hypochromia 0 Platelet Estimate Increased Platelet Comment Present Polychromasia 0 Poikilocytosis 1+ Anisocytosis 2+ Microcytosis 1+ Macrocytosis 0 Spherocytes 1+ Tear Drop Cells 1+ PT with INR 15.20 H INR 1.28 H PTT (Actin FS) 38.2 H Sodium 141 Potassium 4.1 Chloride 110 H Carbon Dioxide 26 Anion Gap 6 L BUN 5.9 L Creatinine 0.8 Est GFR (CKD-EPI)AfAm 101.04 Est GFR (CKD-EPI)NonAf 87.18 Random Glucose 86 Calcium 8.8 Phosphorus 3.2 Magnesium 1.9 Total Bilirubin 0.9 AST 15 ALT 19 Alkaline Phosphatase 71 Total Protein 6.0 L Albumin 3.7 Stool Occult Blood Blood Type Antibody Screen Active Medications Generic Name Dose Route Start Last Admin Trade Name Freq PRN Reason Stop Dose Admin Acetaminophen 650 mg 07/02/19 16:17 Tylenol - PO Q4H PRN FEVER Lactated Ringer's 1,000 mls @ 100 mls/hr 07/02/19 16:30 07/02/19 18:17 Lactated Ringers Solution IV 100 mls/hr ASDIR MARCELINO Administration Metronidazole 500 mg in 100 mls @ 100 mls/hr 07/02/19 18:00 07/03/19 09:14 Flagyl 500mg Premixed Ivpb - IVPB 100 mls/hr Q8H-IV MARCELINO Administration Sodium Phosphate 133 ml 07/04/19 08:00 Fleet Adult Rectal Enema - NM 07/04/19 08:01 ONCE ONE ASSESSMENT/PLAN: 48 yof with PMHx of Myeloproliferative disorder, essential thrombocytosis ( Baseline WBC 15-20, Platelets around 1 million) on ASA, strong family Hx of colon ca, last colonoscopy 3.5 years ago (with Dr. Argueta), admitted with acute colitis/proctitis and hematochezia. -Acute descending/sigmoid colitis/Proctitis -Hematochezia -Myeloproliferative disorder (baseline WBC 15--20) -Essential thrombocytosis Plan: Doing well CBC around baseline. GI input noted. For sigmoidoscopy in AM, bowel prep Full liquid diet. NPO after midnight. levaquin/flagyl day 2. Follow up stools studies. Supportive treatment with zofran/tylenol/IVF. No further bleed. Monitor h/h. ASA on hold today, resume in 24 hours based on clinical course. Hematology input based on sigmoidoscopy findings. DVTPPX SCDs for now Dispo in 24-48 hours pending above. Discussed with patient, nursing and GI. Visit type - Emergency Visit Emergency Visit: Yes ED Registration Date: 07/02/19 Care time: The patient presented to the Emergency Department on the above date and was hospitalized for further evaluation of their emergent condition. - New Patient This patient is new to me today: No - Critical Care Critical Care patient: No - Discharge Referral Referred to [facility] No
--- NOTE | 2019-07-03 22:02 | EKG ---
Test Reason : Blood Pressure : / mmHG Vent. Rate : 076 BPM Atrial Rate : 076 BPM P-R Int : 170 ms QRS Dur : 102 ms QT Int : 418 ms P-R-T Axes : 050 -09 040 degrees QTc Int : 470 ms NORMAL SINUS RHYTHM POSSIBLE LEFT ATRIAL ENLARGEMENT INFERIOR INFARCT (CITED ON OR BEFORE 21-NOV-2018) CANNOT RULE OUT ANTERIOR INFARCT (CITED ON OR BEFORE 21-NOV-2018) ABNORMAL ECG WHEN COMPARED WITH ECG OF 21-NOV-2018 01:15, NO SIGNIFICANT CHANGE WAS FOUND Confirmed by Marge Byers ([id number]) on 07/03/2019 10:02:24 PM Referred By: Confirmed By:Marge Byers
[2019-07-04] MEDS: LACTATED RINGERS SOLUTION 1,000 ML IV SCH ×2 (00:01→18:00)
[2019-07-04] MEDS ORDERED: SODIUM PHOSPHATE/NA BIPHOS 133 ML ENEMA PR ONE (08:00)
[2019-07-04 08:27] LABS: BASO % 0.8 % (0-2.0); EOS % 2.4 % (0-4.5); HEMATOCRIT 47.4 % (32.4-45.2); LYMPH % 7.6 % (8-40); MCH 30.4 pg (25.7-33.7); MCHC 33.8 g/dl (32.0-36.0); MEAN CELL VOLUME 89.9 fl (80-96); MEAN PLT VOLUME 6.2 fl (7.5-11.1); MONO % 1.9 % (3.8-10.2); NEUT % 87.3 % (42.8-82.8); RBC 5.27 M/mm3 (3.60-5.2); RDW 15.6 % (11.6-15.6); WHITE BLOOD COUNT 19.6 K/mm3 (4.0-10.0)
[2019-07-04 08:35] LABS: PLATELET COUNT 1153 K/MM3 (134-434)
[2019-07-04 08:47] LABS: BLOOD UREA NITROGEN 4.8 mg/dL (7-18); CALCIUM 9.4 mg/dL (8.5-10.1); MAGNESIUM 2.2 mg/dL (1.8-2.4); PHOSPHOROUS 3.8 mg/dL (2.5-4.9); POTASSIUM 4.4 mmol/L (3.5-5.1)
[2019-07-04 11:48] LABS: ANISOCYTOSIS 1+; MACROCYTOSIS 0; PLATELET ESTIMATE INCREASED; TEAR DROP CELLS 1+
--- NOTE | 2019-07-04 12:58 | PN ---
Teaching Attending Note Name of Resident: Ignacio Hammonds ATTENDING PHYSICIAN STATEMENT I saw and evaluated the patient. I reviewed the resident's note and discussed the case with the resident. I agree with the resident's findings and plan as documented with exceptions below. SUBJECTIVE: Patient seen and examined. abdominal pain improved. Further more episodes of BRBPR with bowel prep, seems resolving now. No new complaints otherwise. OBJECTIVE: Vital Signs Period Temp Pulse Resp BP Sys/Carty Pulse Ox Last 24 Hr 97.6 F-98.9 F 68-76 - 121-149/71-89 Intake & Output 07/01/19 07/02/19 07/03/19 07/04/19 23:59 23:59 23:59 23:59 Intake Total 450 1490 750 Balance 450 1490 750 Weight 172 lb 9.6 oz General: sitting in bed in no acute distress Chest: CTAb, no rales or wheezing Abdomen:Soft, minimal suprapubic/medial LLQ tenderness, no voluntary or involuntary guarding or rigidity, pos bowel sounds Extremities: no edema Home Medications Medication Instructions Recorded Aspirin 81 mg PO DAILY 07/02/19 Active Medications Acetaminophen (Tylenol -) 650 mg PO Q4H PRN PRN Reason: FEVER Lactated Ringer's (Lactated Ringers Solution) 1,000 mls @ 100 mls/hr IV ASDIR MARCELINO Last Admin: 07/04/19 00:01 Dose: 100 mls/hr Metronidazole (Flagyl 500mg Premixed Ivpb -) 500 mg in 100 mls @ 100 mls/hr IVPB Q8H-IV MARCELINO Last Admin: 07/04/19 02:58 Dose: 100 mls/hr Levofloxacin (Levaquin 750 Mg Premixed Ivpb -) 750 mg in 150 mls @ 100 mls/hr IVPB DAILY MARCELINO; Protocol Last Admin: 07/04/19 09:15 Dose: 100 mls/hr Laboratory Results - last 24 hr 07/04/19 07/04/19 07:50 07:50 WBC 19.6 H RBC 5.27 H Hgb 16.0 H Hct 47.4 H MCV 89.9 MCH 30.4 MCHC 33.8 RDW 15.6 Plt Count 1153 H D MPV 6.2 L Absolute Neuts (auto) 17.1 H Neutrophils % 87.3 H Lymphocytes % 7.6 L D Monocytes % 1.9 L Eosinophils % 2.4 Basophils % 0.8 Nucleated RBC % 0 Sodium 140 Potassium 4.4 Chloride 108 H Carbon Dioxide 25 Anion Gap 6 L BUN 4.8 L Creatinine 1.0 Est GFR (CKD-EPI)AfAm 77.15 Est GFR (CKD-EPI)NonAf 66.57 Random Glucose 90 Calcium 9.4 Phosphorus 3.8 Magnesium 2.2 Beta HCG, Quant 1.5 Microbiology 07/03/19 15:30 Stool Clostridioides difficile Antigen - Preliminary 07/03/19 15:30 Stool Clostridioides difficile Toxin Assay - Preliminary ASSESSMENT AND PLAN: 48 yof with PMHx of Myeloproliferative disorder, essential thrombocytosis ( Baseline WBC 15-20, Platelets around 1 million) on ASA, strong family Hx of colon ca, last colonoscopy 3.5 years ago (with Dr. Argueta), admitted with acute colitis/proctitis and hematochezia. -Acute descending/sigmoid colitis/Proctitis -Hematochezia -Myeloproliferative disorder (baseline WBC 15--20) -Essential thrombocytosis Plan: Doing well Further hematochezia with bowel prep, monitor h/h, ASA on hold. GI input noted. For sigmoidoscopy today, follow up. levaquin/flagyl day 3. Stool C difficile neg. Supportive treatment with zofran/tylenol/IVF. Hematology input based on sigmoidoscopy findings, discuss with Dr. Blank. DVTPPX SCDs for now Dispo in 24-48 hours pending above. Discussed with patient in detail, all questions answered.
--- NOTE | 2019-07-04 17:50 | PN ---
Physical Exam: SUBJECTIVE: Patient seen and examined. O/N: completed Fleet's Enema w/ small bloody clots seen. Denies abdominal pain. OBJECTIVE: Vital Signs Period Temp Pulse Resp BP Sys/Carty Pulse Ox Last 24 Hr 97.6 F-98.9 F 63-77 15-19 116-149/56-89 98-100 GENERAL: The patient is awake, alert, no acute distress. NAD HEAD: NC/AT EYES: sclera anicteric, conjunctiva w/o pallor. ENT: Ears normal, nares patent, moist mucous membranes. NECK: Trachea midline, full range of motion, supple. LUNGS: Breath sounds equal, clear to auscultation bilaterally, no wheezes, no crackles, no accessory muscle use. HEART: Regular rate and rhythm, S1, S2 without murmur, rub or gallop. ABDOMEN: Soft, nontender, nondistended, no guarding, no rebound. EXTREMITIES: 2+ pulses, warm, well-perfused, no edema. NEUROLOGICAL: Cranial nerves II through XII grossly intact. Normal speech, gait not observed. PSYCH: Normal mood, normal affect. SKIN: Warm, dry, normal turgor, no rashes or lesions noted Laboratory Results - last 24 hr 07/04/19 07/04/19 07:50 07:50 WBC 19.6 H RBC 5.27 H Hgb 16.0 H Hct 47.4 H MCV 89.9 MCH 30.4 MCHC 33.8 RDW 15.6 Plt Count 1153 H D MPV 6.2 L Absolute Neuts (auto) 17.1 H Neutrophils % 87.3 H Neutrophils % (Manual) 85.4 H Band Neutrophils % 1.0 Lymphocytes % 7.6 L D Lymphocytes % (Manual) 6.8 L D Monocytes % 1.9 L Monocytes % (Manual) 2 L D Eosinophils % 2.4 Eosinophils % (Manual) 2.9 Basophils % 0.8 Basophils % (Manual) 0.0 Myelocytes % (Man) 0 Promyelocytes % (Man) 0 Blast Cells % (Manual) 0 Nucleated RBC % 0 Metamyelocytes 1 D Hypochromia 0 Platelet Estimate Increased Polychromasia 0 Poikilocytosis 1+ Anisocytosis 1+ Microcytosis 1+ Macrocytosis 0 Tear Drop Cells 1+ Sodium 140 Potassium 4.4 Chloride 108 H Carbon Dioxide 25 Anion Gap 6 L BUN 4.8 L Creatinine 1.0 Est GFR (CKD-EPI)AfAm 77.15 Est GFR (CKD-EPI)NonAf 66.57 Random Glucose 90 Calcium 9.4 Phosphorus 3.8 Magnesium 2.2 Beta HCG, Quant 1.5 Active Medications Generic Name Dose Route Start Last Admin Trade Name Freq PRN Reason Stop Dose Admin Acetaminophen 650 mg 07/02/19 16:17 Tylenol - PO Q4H PRN FEVER Lactated Ringer's 1,000 mls @ 100 mls/hr 07/02/19 16:30 07/04/19 00:01 Lactated Ringers Solution IV 100 mls/hr ASDIR MARCELINO Administration Metronidazole 500 mg in 100 mls @ 100 mls/hr 07/02/19 18:00 07/04/19 14:00 Flagyl 500mg Premixed Ivpb - IVPB 100 mls/hr Q8H-IV MARCELINO Administration Levofloxacin 750 mg in 150 mls @ 100 mls/hr 07/03/19 13:30 07/04/19 09:15 Levaquin 750 Mg Premixed Ivpb - IVPB 100 mls/hr DAILY MARCELINO Administration Protocol ASSESSMENT/PLAN: 48 y/o F with PMHx Essential Thrombocytosis (follows with Dr. Blank, Baseline PLT 4499-9799, Baseline WBC 15-20k, No hx of bone bx), Hemorrhoids, Anal fissures, multiple family members with Colon Ca (Last Colonoscopy at age 41 and 45, Normal as per patient) presenting with complaint BRBPR. #BRBPR 2/2 Left-sided Colitis -- Diverticular Bleed vs Colon Ca vs internal hemorrhoids vs angiodysplasia > FOBT + > H&H stable, VSS > CT A/P(07/02/19): Left-sided colitis, hepatic lobe cyst ~1cm, Right ovarian cyst ~3cm, splenomegaly ~16cm > flexible sigmoidoscopy(07/04/19): colitis from rectosigmoid to splenic flexure , likely ischemic > cdiff -- pending > stool cx --pending -ABx: IV Levofloxacin, Metronidazole -Serial Abdominal Exams #Essential Thrombocytosis -Heme consult: --Dr Blank([phone]) -- out of office --Dr George -Continue to monitor PLT, WBC -Hold ASA -- resume pending Heme consult #PRolonged QTc >QTc 470 -Avoid QT proloning Agents -Serial EKGs #FEN -LR @ 100 -regular diet #PPx -DVT: SCDs Dispo: Admit to med-surg Visit type - Emergency Visit Emergency Visit: No - New Patient This patient is new to me today: No - Critical Care Critical Care patient: No ATTENDING PHYSICIAN STATEMENT I saw and evaluated the patient. I reviewed the resident's note and discussed the case with the resident. I agree with the resident's findings and plan as documented. SUBJECTIVE: OBJECTIVE: ASSESSMENT AND PLAN:
[2019-07-05] MEDS: LACTATED RINGERS SOLUTION 1,000 ML IV SCH (06:05)
[2019-07-05 07:28] VITALS: BP 141/76; PULSE 61; TEMP 98.8
[2019-07-05 09:08] LABS: BASO % 0.6 % (0-2.0); EOS % 2.1 % (0-4.5); HEMATOCRIT 47.1 % (32.4-45.2); HEMOGLOBIN 15.9 GM/dL (10.7-15.3); LYMPH % 5.8 % (8-40); MCH 30.7 pg (25.7-33.7); MCHC 33.8 g/dl (32.0-36.0); MEAN CELL VOLUME 90.9 fl (80-96); MEAN PLT VOLUME 6.4 fl (7.5-11.1); MONO % 1.7 % (3.8-10.2); NEUT % 89.8 % (42.8-82.8); RBC 5.19 M/mm3 (3.60-5.2); RDW 15.4 % (11.6-15.6); WHITE BLOOD COUNT 19.9 K/mm3 (4.0-10.0)
[2019-07-05 09:12] LABS: PLATELET COUNT 1103 K/MM3 (134-434)
[2019-07-05 12:09] LABS: ANISOCYTOSIS 0; MACROCYTOSIS 0; PLATELET ESTIMATE INCREASED
--- NOTE | 2019-07-05 12:36 | PN ---
Teaching Attending Note Name of Resident: Ignacio Hammonds ATTENDING PHYSICIAN STATEMENT I saw and evaluated the patient. I reviewed the resident's note and discussed the case with the resident. I agree with the resident's findings and plan as documented with exceptions below. SUBJECTIVE: patient seen and examined, no further cramps, no additional BM or bloody stools. Tolerating diet well. OBJECTIVE: Vital Signs Period Temp Pulse Resp BP Sys/Carty Pulse Ox Last 24 Hr 98.4 F-98.8 F 61-77 15-20 116-141/56-77 98-100 Intake & Output 07/02/19 07/03/19 07/04/19 07/05/19 23:59 23:59 23:59 23:59 Intake Total 450 1490 2600 1550 Balance 450 1490 2600 1550 Weight 172 lb 9.6 oz General: sitting in bed in no acute distress Chest: CTAb, no rales or wheezing Abdomen:Soft, no suprapubic or medial LLQ tenderness, no voluntary or involuntary guarding or rigidity, pos bowel sounds Extremities: no edema Home Medications Medication Instructions Recorded Ciprofloxacin [Cipro -] 500 mg PO Q12H 07/05/19 metroNIDAZOLE [Flagyl -] 500 mg PO TID 07/05/19 Laboratory Results - last 24 hr 07/04/19 07/05/19 07:50 08:45 WBC 19.9 H RBC 5.19 Hgb 15.9 H Hct 47.1 H MCV 90.9 MCH 30.7 MCHC 33.8 RDW 15.4 Plt Count 1103 H MPV 6.4 L Absolute Neuts (auto) 17.9 H Neutrophils % 89.8 H Neutrophils % (Manual) 85.4 H 84.0 H Band Neutrophils % 1.0 1.0 Lymphocytes % 5.8 L D Lymphocytes % (Manual) 6.8 L D 5.0 L D Monocytes % 1.7 L Monocytes % (Manual) 2 L D 3 L Eosinophils % 2.1 Eosinophils % (Manual) 2.9 3.0 Basophils % 0.6 Basophils % (Manual) 0.0 0.0 Myelocytes % (Man) 0 0 Promyelocytes % (Man) 0 0 Blast Cells % (Manual) 0 0 Nucleated RBC % 0 Metamyelocytes 1 D 0 D Hypochromia 0 0 Platelet Estimate Increased Increased Polychromasia 0 0 Poikilocytosis 1+ 0 Anisocytosis 1+ 0 Microcytosis 1+ 0 Macrocytosis 0 0 Tear Drop Cells 1+ Sigmoidoscopy results noted ASSESSMENT AND PLAN: 48 yof with PMHx of Myeloproliferative disorder, essential thrombocytosis ( Baseline WBC 15-20, Platelets around 1 million) on ASA, strong family Hx of colon ca, last colonoscopy 3.5 years ago (with Dr. Argueta), admitted with acute colitis/proctitis and hematochezia. -Acute descending/sigmoid colitis/Proctitis, suspected ischemic -Hematochezia -Myeloproliferative disorder (baseline WBC 15--20) -Essential thrombocytosis Plan: Sigmoidoscopy results noted Suspect ischemic colitis Disucssed with Dr. Blank, does not feel current episode related to underlying hematological disorder. Recommend to hold ASA And follow up with his office next week. GI input noted, outpatient follow up with Dr. Argueta h/h stable. Cipro/flagyl for additional 5 days D/c home today with outpatient GI/hematology/PCP follow up Plan discussed with patient in detail, all questions answered. She relays full understanding of the instructions.
--- NOTE | 2019-07-05 17:52 | DS ---
Physical Exam: SUBJECTIVE: Patient seen and examined OBJECTIVE: Vital Signs Period Temp Pulse Resp BP Sys/Carty Pulse Ox Last 24 Hr 98.4 F-98.8 F 61-76 19-20 132-141/76-77 100-100 PHYSICAL EXAM GENERAL: The patient is awake, alert, no acute distress. NAD HEAD: NC/AT EYES: sclera anicteric, conjunctiva w/o pallor. ENT: Ears normal, nares patent, moist mucous membranes. NECK: Trachea midline, full range of motion, supple. LUNGS: Breath sounds equal, clear to auscultation bilaterally, no wheezes, no crackles, no accessory muscle use. HEART: Regular rate and rhythm, S1, S2 without murmur, rub or gallop. ABDOMEN: Soft, nontender, nondistended, no guarding, no rebound. EXTREMITIES: 2+ pulses, warm, well-perfused, no edema. NEUROLOGICAL: Cranial nerves II through XII grossly intact. Normal speech, gait not observed. PSYCH: Normal mood, normal affect. SKIN: Warm, dry, normal turgor, no rashes or lesions noted LABS Laboratory Results - last 24 hr 07/05/19 08:45 WBC 19.9 H RBC 5.19 Hgb 15.9 H Hct 47.1 H MCV 90.9 MCH 30.7 MCHC 33.8 RDW 15.4 Plt Count 1103 H MPV 6.4 L Absolute Neuts (auto) 17.9 H Neutrophils % 89.8 H Neutrophils % (Manual) 84.0 H Band Neutrophils % 1.0 Lymphocytes % 5.8 L D Lymphocytes % (Manual) 5.0 L D Monocytes % 1.7 L Monocytes % (Manual) 3 L Eosinophils % 2.1 Eosinophils % (Manual) 3.0 Basophils % 0.6 Basophils % (Manual) 0.0 Myelocytes % (Man) 0 Promyelocytes % (Man) 0 Blast Cells % (Manual) 0 Nucleated RBC % 0 Metamyelocytes 0 D Hypochromia 0 Platelet Estimate Increased Polychromasia 0 Poikilocytosis 0 Anisocytosis 0 Microcytosis 0 Macrocytosis 0 HOSPITAL COURSE: 48 y/o F with PMHx Essential Thrombocytosis (follows with Dr. Blank, Baseline PLT [id number], Baseline WBC 15-20k, No hx of bone bx), Hemorrhoids, Anal fissures, multiple family members with Colon Ca (Last Colonoscopy at age 41 and 45, Normal as per patient) presented with complaint of BRBPR. Had FOBT+. CT A/P( 07/02/19) showed Left-sided colitis, hepatic lobe cyst ~1cm, Right ovarian cyst ~3cm, splenomegaly ~16cm. Flexible sigmoidoscopy(07/04/19) showing colitis from rectosigmoid to splenic flexure, likely ischemic. Started on levofloxacin, metronidazole. [facility] consulted for essential thrombocytosis. Dr Blank([facility]) did not think areas of colitis related to essential thrombocytopenia, recommended holding ASA for now. Recommended to cw Ciprofloxacin[CIPRO] and metronidazole[ FLAGYL] additional 5 days at discharge. Date of Admission:07/02/19 Date of Discharge: 07/05/19 Minutes to complete discharge: 20 Discharge Summary Problems reviewed: Yes Reason For Visit: COLITIS Condition: Stable - Instructions Diet, Activity, Other Instructions: You were evaluated in the hospital for abdominal pain with blood in your stool. Imaging and sigmoidoscopy showed inflammation of the colon, suspicious for ischemic colitis. The findings were discussed with Dr Blank and his recommendations was to stop Aspirin for now. Please follow-up in 1 weeks with the physicians below: - Utilization Management Nurse(Dr Andrzej Blank): to discuss your thrombocytosis, and when to restart your aspirin - Gastroenterolgist(Dr Argueta): to followup on your Left-sided colitis - PCP: in 1 week to discuss your hospitalization Medications: - CHANGES: please stop taking your Aspirin, when to resume will be determined by Dr Blank - please take the Ciprofloxacin[CIPRO] and metronidazole[FLAGYL] that the Emergency Department previously prescribed for additional 5 days, then stop if non concerns. Additional instructions: - diet: regular diet as tolerated - activity: normal activity as tolerated Please seek immediate medical evaluation or go to the Emergency Department if you experience: - continued large amounts of bloody bowel movements - severe abdominal pain - weakness, fatigue, palpitations, rapid heart rate, trouble breathing -fevers >101 or any new concerns Referrals: Castillo Argueta MD [Staff Physician] - Andrzej Blank MD [Staff Physician] - Anabela Fajardo MD [Primary Care Provider] - Disposition: HOME - Home Medications Comprehensive Discharge Medication List: Ambulatory Orders Ciprofloxacin [Cipro -] 500 mg PO Q12H 07/05/19 metroNIDAZOLE [Flagyl -] 500 mg PO TID 07/05/19 This patient is new to me today: No Emergency Visit: No Critical Care patient: No - Discharge Referral Referred to [facility] No ATTENDING PHYSICIAN STATEMENT I saw and evaluated the patient. I reviewed the resident's note and discussed the case with the resident. I agree with the resident's findings and plan as documented. SUBJECTIVE: OBJECTIVE: ASSESSMENT AND PLAN:
--- NOTE | 2019-07-06 17:16 | PATH ---
Surgical Pathology Report Patient Name: VERONIQUE PEREZ [facility]. Rec. #: [id number] /Age/Gender: 1970 (Age: 48) / F Account: [id number] Location: [address] [place] [address] Taken: 07/04/2019 Received: 07/05/2019 Reported: 07/06/2019 Physicians: Carmina Casper MD Specimen(s) Received LEFT COLON BIOPSY Clinical History Rule out ischemic colitis Diarrhea, rectal bleeding, abdominal pain Postoperative diagnosis: Colitis Final Diagnosis COLON, LEFT, BIOPSY: COLONIC MUCOSA WITH MUCOSAL HEMORRHAGE, FOCAL HYALINIZATION, MICROCRYPT FORMATION, AND SURFACE NECROSIS. NO ACUTE/ACTIVE INFLAMMATION IDENTIFIED. Comment: Although compatible with ischemic colitis, findings are non-specific. Suggest clinical and endoscopic correlation. Electronically Signed Melissa Maciel M.D. Gross Description Received in formalin, labeled "left colon" are 4 daniels, irregular portions of soft tissue measuring 0.2 cm. in greatest dimension. The specimens are submitted in toto in one cassette. MLSZ/07/05/2019 sanml/07/05/2019
== END 2019-07-05 13:15 | disposition home or self-care (01) | DRG 394 ==
LOC: JER 12:42 → JERBED 14:59 → J6S 20:02
PROVIDERS: ADMIT Hospitalist; ATTEND Hospitalist
PROC: 0DBN8ZX Excision of Sigmoid Colon, Via Natural or Artificial Opening Endoscopic, Diagnostic (ICD-10-PCS; principal; 2019-07-04 13:00)
DX: K55.9 Vascular disorder of intestine, unspecified (principal); K92.2 Gastrointestinal hemorrhage, unspecified; K52.89 Other specified noninfective gastroenteritis and colitis; D47.3 Essential (hemorrhagic) thrombocythemia; K64.8 Other hemorrhoids; R94.31 Abnormal electrocardiogram [ECG] [EKG]; Z85.038 Personal history of other malignant neoplasm of large intestine; Z85.6 Personal history of leukemia
CPT/HCPCS: 36415; 80048; 80053; 82272; 83735; 84100; 84702; 85025; 85610; 85730; 86850; 86900; 86901; 87045; 87046; 87177; 87209; 87324; 87449; 88305-TC; 93005; 93010; 99283-25

== ENCOUNTER 2021-01-02 08:04 | Day surgery (SDC) | payer BC ==
[2020-12-31 12:11] VITALS: BMI 28.1
[2021-01-02] MEDS ORDERED: PROPOFOL 20 ML ONE ×2 (08:26)
[2021-01-02] MEDS ORDERED: LIDOCAINE HCL/PF 2% SDV 5ML VIAL ONE (08:26)
[2021-01-02 09:23] VITALS: TEMP 98.2
[2021-01-02 09:50] VITALS: BP 114/56; PULSE 84
== END 2021-01-02 09:56 | disposition home or self-care (01) ==
LOC: FASU-ENDO 08:04
PROVIDERS: ATTEND Internal Medicine Gastroenterology
PROC: 0DJD8ZZ Inspection of Lower Intestinal Tract, Via Natural or Artificial Opening Endoscopic (ICD-10-PCS; principal; 2021-01-02 08:57)
DX: Z12.11 Encounter for screening for malignant neoplasm of colon (principal); Z80.0 Family history of malignant neoplasm of digestive organs

== ENCOUNTER 2023-03-29 22:54 | Emergency (ER) | payer BC, OTHER ==
[2023-03-29 23:00] VITALS: BP 120/76; PULSE 77; RESP 18; TEMP 97.9; BMI 27.3
[2023-03-29] MEDS ORDERED: LACTATED RINGERS SOLUTION 1000 ML INFUS.BAG IV ONE (23:44)
[2023-03-30 01:20] LABS: HEMATOCRIT 47.2 % (32.4-45.2); HEMOGLOBIN 15.1 GM/dL (10.7-15.3); MCH 24.2 pg (25.7-33.7); MEAN CELL VOLUME 75.6 fl (80-96); MEAN PLT VOLUME 7.2 fl (7.5-11.1); PLATELET COUNT 447 10^3/uL (134-434); RBC 6.24 M/mm3 (3.60-5.2); RDW 18.4 % (11.6-15.6); WHITE BLOOD COUNT 11.7 K/mm3 (4.0-10.0)
[2023-03-30 01:24] LABS: PH,URINE 5.5 (5.0-8.0); URINE APPEARANCE CLEAR; URINE BILIRUBIN NEGATIVE (NEGATIVE); URINE COLOR YELLOW; URINE GLUCOSE (UA) NEGATIVE (NEGATIVE); URINE KETONE NEGATIVE (NEGATIVE); URINE LEUK ESTERASE NEGATIVE (NEGATIVE); URINE NITRITE NEGATIVE (NEGATIVE); URINE PROTEIN NEGATIVE (NEGATIVE); URINE UROBILINOGEN 0.2 mg/dL (0.2-1.0)
[2023-03-30 01:47] LABS: POTASSIUM 4.3 mmol/L (3.5-5.1)
[2023-03-30 01:50] LABS: CALCIUM 9.5 mg/dL (8.5-10.1)
[2023-03-30 01:53] LABS: CREATININE 0.9 mg/dL (0.55-1.3)
[2023-03-30 01:55] LABS: BILIRUBIN,TOTAL 0.5 mg/dL (0.2-1); TOT PROT 7.5 g/dl (6.4-8.2)
[2023-03-30 03:02] LABS: ANISOCYTOSIS 3+; MACROCYTOSIS 0
== END 2023-03-30 03:38 | disposition home or self-care (01) ==
LOC: JER 22:54
DX: R10.13 Epigastric pain (principal); R11.2 Nausea with vomiting, unspecified; R19.7 Diarrhea, unspecified; R10.32 Left lower quadrant pain; Z20.822 Contact with and (suspected) exposure to COVID-19
CPT/HCPCS: 0241U-QW; 36415; 74018-TC-FY; 80053; 81003; 83605; 83690; 83735; 84484; 85025; 86850; 86870; 86900; 86901; 86902; 87086; 93005; 93010; 99285-25

== ENCOUNTER 2023-04-02 10:53 | Emergency (ER) | payer BC, OTHER ==
[2023-04-02 10:58] VITALS: BP 124/81; PULSE 93; RESP 20; TEMP 98; BMI 27.0
[2023-04-02] MEDS ORDERED: SODIUM CHLORIDE 1,000 ML IV STA (11:35)
[2023-04-02] MEDS ORDERED: ACETAMINOPHEN 1000 MG/100 ML BAG IVPB ONE (11:35)
[2023-04-02] MEDS ORDERED: ACETAMINOPHEN INJECTION 100 ML IVPB ONE (11:51)
[2023-04-02 12:00] LABS: HEMATOCRIT 46.9 % (32.4-45.2); HEMOGLOBIN 14.8 GM/dL (10.7-15.3); MCH 23.7 pg (25.7-33.7); MCHC 31.5 g/dl (32.0-36.0); MEAN CELL VOLUME 75.2 fl (80-96); MEAN PLT VOLUME 7.2 fl (7.5-11.1); PLATELET COUNT 399 10^3/uL (134-434); RBC 6.24 M/mm3 (3.60-5.2); RDW 18.4 % (11.6-15.6); WHITE BLOOD COUNT 6.8 K/mm3 (4.0-10.0)
[2023-04-02 12:16] LABS: POTASSIUM 4.1 mmol/L (3.5-5.1)
[2023-04-02 12:17] LABS: INR 1.06 (0.83-1.09); PROTHROMBIN TIME (PATIENT) 12.3 SEC (9.7-13.0)
[2023-04-02 12:18] LABS: ALBUMIN 3.8 g/dl (3.4-5.0)
[2023-04-02 12:19] LABS: BLOOD UREA NITROGEN 6.4 mg/dL (7-18)
[2023-04-02 12:20] LABS: ACTIVATED PTT 35.9 SECONDS (25.2-36.5)
[2023-04-02 12:23] LABS: TOT PROT 7.3 g/dl (6.4-8.2)
[2023-04-02 12:40] LABS: ANISOCYTOSIS 1+; MACROCYTOSIS 0
[2023-04-02 12:59] LABS: PH,URINE 6.5 (5.0-8.0); URINE APPEARANCE CLEAR; URINE BILIRUBIN NEGATIVE (NEGATIVE); URINE COLOR YELLOW; URINE GLUCOSE (UA) NEGATIVE (NEGATIVE); URINE KETONE NEGATIVE (NEGATIVE); URINE LEUK ESTERASE NEGATIVE (NEGATIVE); URINE NITRITE NEGATIVE (NEGATIVE); URINE PROTEIN NEGATIVE (NEGATIVE); URINE UROBILINOGEN 0.2 mg/dL (0.2-1.0)
== END 2023-04-02 14:49 | disposition home or self-care (01) ==
LOC: JER 10:53
PROC: 3E033NZ Introduction of Analgesics, Hypnotics, Sedatives into Peripheral Vein, Percutaneous Approach (ICD-10-PCS; principal; 2023-04-02)
PROC: 3E0337Z Introduction of Electrolytic and Water Balance Substance into Peripheral Vein, Percutaneous Approach (ICD-10-PCS; 2023-04-02)
DX: R10.30 Lower abdominal pain, unspecified (principal); R19.7 Diarrhea, unspecified; K52.9 Noninfective gastroenteritis and colitis, unspecified
CPT/HCPCS: 36415; 74177-TC; 80053; 81003; 83605; 83690; 85025; 85610; 85730; 87086; 99285-25; Q9967

== ENCOUNTER 2025-02-10 17:13 | Observation (INO) | payer BC, OTHER ==
[2025-02-10 18:50] VITALS: BMI 28.1
[2025-02-10 18:52] LABS: HEMATOCRIT 19.3 % (34.1-44.9); HEMOGLOBIN 6.1 g/dL (11.2-15.7); MCHC 31.6 g/dl (32.2-35.5); MEAN CELL VOLUME 84.6 fl (79.4-94.8); MEAN PLT VOLUME 9.2 fl (9.4-12.3); PLATELET COUNT 231 x10^3/uL (182-369); RDW 16.4 % (12.3-16.6)
[2025-02-10 18:59] LABS: INR 1.1 (0.83-1.09)
[2025-02-10 19:01] LABS: ACTIVATED PTT 31.7 SECONDS (25.2-36.5)
[2025-02-10 19:43] LABS: PH,URINE 6.5 (5.0-8.0); URINE APPEARANCE CLEAR; URINE BILIRUBIN NEGATIVE (NEGATIVE); URINE COLOR YELLOW; URINE GLUCOSE (UA) NEGATIVE (NEGATIVE); URINE KETONE NEGATIVE (NEGATIVE); URINE LEUK ESTERASE NEGATIVE (NEGATIVE); URINE NITRITE NEGATIVE (NEGATIVE); URINE PROTEIN NEGATIVE (NEGATIVE); URINE UROBILINOGEN 0.2 mg/dL (0.2-1.0)
[2025-02-10 19:45] LABS: POTASSIUM 3.6 mmol/L (3.5-5.1)
[2025-02-10 19:46] LABS: CALCIUM 9.1 mg/dL (8.5-10.1)
[2025-02-10 19:47] LABS: ALBUMIN 3.6 g/dl (3.4-5.0)
[2025-02-10 19:50] LABS: CREATININE 0.9 mg/dL (0.55-1.3)
[2025-02-10 19:52] LABS: BILIRUBIN,TOTAL 1.5 mg/dL (0.2-1); TOT PROT 7.2 g/dl (6.4-8.2)
[2025-02-10] MEDS ORDERED: ACETAMINOPHEN 325 MG TABLET (FP) ONE (20:36)
[2025-02-10] MEDS: ACETAMINOPHEN 500 MG TABLET (FP) PO ONE (20:37)
[2025-02-11] MEDS: LEVOTHYROXINE NA 88 MCG TABLET (FP) PO SCH (09:28)
[2025-02-11] MEDS: AMOX TR/POT CLAV 875MG/125MG TABLETS (FP) PO SCH (09:29)
[2025-02-11] MEDS: FLUTICASONE PROP 0.05% 16 GM NASAL SPRAY NS SCH (10:16)
[2025-02-11 12:32] LABS: HEMATOCRIT 25.7 % (34.1-44.9); HEMOGLOBIN 7.9 g/dL (11.2-15.7); MCHC 30.7 g/dl (32.2-35.5); MEAN CELL VOLUME 87.7 fl (79.4-94.8); MEAN PLT VOLUME 9.2 fl (9.4-12.3); PLATELET COUNT 216 x10^3/uL (182-369); RDW 17.4 % (12.3-16.6)
[2025-02-11 12:39] LABS: POTASSIUM 3.8 mmol/L (3.5-5.1)
[2025-02-11 12:44] LABS: ALBUMIN 3.6 g/dl (3.4-5.0); BLOOD UREA NITROGEN 10.6 mg/dL (7-18); CALCIUM 8.5 mg/dL (8.5-10.1)
[2025-02-11 12:47] LABS: BILIRUBIN,DIRECT 0.4 mg/dL (0.0-0.2); CREATININE 0.8 mg/dL (0.55-1.3)
[2025-02-11 12:49] LABS: BILIRUBIN,TOTAL 1.8 mg/dL (0.2-1); TOT PROT 7.2 g/dl (6.4-8.2)
[2025-02-11 13:25] LABS: ERYTHROCYTE SEDIMENTATION RATE 90 mm/hr (0-30)
[2025-02-11 18:29] LABS: Reticulocyte % 6.02 % (0.5-1.7)
[2025-02-12 08:09] LABS: HEMATOCRIT 26.1 % (34.1-44.9); HEMOGLOBIN 7.9 g/dL (11.2-15.7); MCHC 30.3 g/dl (32.2-35.5); MEAN CELL VOLUME 89.7 fl (79.4-94.8); MEAN PLT VOLUME 9.2 fl (9.4-12.3); PLATELET COUNT 202 x10^3/uL (182-369); RDW 18.8 % (12.3-16.6)
[2025-02-12 08:32] LABS: POTASSIUM 3.9 mmol/L (3.5-5.1)
[2025-02-12 08:39] LABS: ALBUMIN 3.3 g/dl (3.4-5.0); BLOOD UREA NITROGEN 10.2 mg/dL (7-18); CALCIUM 8.6 mg/dL (8.5-10.1); MAGNESIUM 2.2 mg/dL (1.8-2.4)
[2025-02-12 08:42] LABS: CREATININE 0.8 mg/dL (0.55-1.3)
[2025-02-12 08:43] LABS: BILIRUBIN,TOTAL 1.2 mg/dL (0.2-1)
[2025-02-12 10:03] VITALS: RESP 16
[2025-02-12 14:20] VITALS: BP 126/74; PULSE 95; TEMP 97.3
== END 2025-02-12 15:46 | disposition home or self-care (01) ==
LOC: JER 17:13 → JERBED 20:48 → J4S 02-11 04:34
PROVIDERS: ADMIT Internal Medicine; ATTEND Physician Assistant
PROC: 30233N1 Transfusion of Nonautologous Red Blood Cells into Peripheral Vein, Percutaneous Approach (ICD-10-PCS; principal; 2025-02-10)
DX: D45 Polycythemia vera (principal); D63.8 Anemia in other chronic diseases classified elsewhere; D72.829 Elevated white blood cell count, unspecified; E03.9 Hypothyroidism, unspecified
CPT/HCPCS: 0241U-QW; 36415; 36430; 71045-TC-FY; 76700-TC; 80053; 81003; 82248; 83735; 85025; 85027; 85610; 85651; 85730; 86140; 86850; 86870; 86880; 86900; 86901; 86902; 86922; 87086; 88300-TC; 93005; 93010; 99285-25; G0378; P9058